=== PATIENT | female | born 1980 | race Two or more races ===

== ENCOUNTER 2024-02-26 14:23 | Emergency (ER) | payer SELFPAY ==
[~2024-02-26] VITALS: Ht 160 cm; Wt 91.0 kg
[2024-02-26 14:48] LABS: Basophils # (auto) 0 10 ^3/uL (0-0.2); Basophils % (auto) 0.7 % (0.0-2.0); Lymphocytes # (auto) 1.5 10 ^3/uL (0.4-5.4); Mean Corpuscular Hemoglobin 26.4 pg (28.0-32.0); Monocytes # (auto) 0.5 10 ^3/uL (0-1.3); White Blood Cell 4.3 10^3/uL (4.4-10.8)
[2024-02-26 14:50] LABS: Eosinophils # (auto) 0.3 10 ^3/uL (0-0.8); Hematocrit 38.4 % (36.0-46.0); Hemoglobin 12.5 g/dL (12.2-16.2); Lymphocytes % (auto) 35.2 % (10.0-50.0); Mean Corpuscular Hgb Conc. 32.6 g/dL (32.0-36.0); Mean Corpuscular Volume 80.9 fL (80.0-100.0); Neutrophils # (auto) 1.9 10 ^3/uL (1.6-8.6); Neutrophils % (auto) 45.1 % (37.0-80.0); Red Blood Cells 4.75 10^6/uL (4.0-5.20); Red Cell Distribution Width 14.6 % (11.8-14.3)
[2024-02-26 15:07] LABS: Alanine Aminotransferase 24 U/L (7-40); Albumin 4.1 g/dL (3.2-4.8); Alkaline Phosphatase 88 U/L (46-116); Anion Gap 8 (5-15); Aspartate Aminotransferase 13 U/L (13-40); BUN/Creatinine Ratio 8.4 (10.0-20.0); Bilirubin, Total 0.2 mg/dL (0.2-1.0); Blood Urea Nitrogen 9 mg/dL (9-23); Calcium 9.6 mg/dL (8.7-10.4); Carbon Dioxide 24 mmol/L (20-30); Chloride 109 mmol/L (98-107); Glucose 119 mg/dL (74-106); Magnesium 1.8 mg/dL (1.6-2.6); Potassium 3.9 mmol/L (3.5-5.1); Sodium 141 mmol/L (136-145); Total Protein 6.5 g/dL (5.7-8.2)
[2024-02-26] MEDS ORDERED: AZIT1POW PO (16:17)
[2024-02-26 16:23] VITALS: BP 107/75; TEMP 98.2
[2024-02-26 16:40] VITALS: PULSE 82; RESP 16; O2SAT 95
== END 2024-02-26 16:51 | disposition home or self-care (01) ==
LOC: ER 14:23
DX: J20.9 Acute bronchitis, unspecified (principal); Z98.890 Other specified postprocedural states; Z88.0 Allergy status to penicillin; Z79.899 Other long term (current) drug therapy
CPT/HCPCS: 36415; 71045; 80053; 83735; 83880; 84484; 85025; 93005

== ENCOUNTER 2025-04-05 22:00 | Emergency (ER) | payer MEDICAID, OTHER ==
[~2025-04-05] VITALS: Ht 152.4 cm; Wt 91.0 kg
[~2025-04-05 22:00] MED LIST: AZIT1POW PO
--- NOTE | 2025-04-05 22:53 | ED.PDOC ---
History of Present Illness HPI Comments 44-year-old female presents with chief complaint of abnormal vaginal bleeding, with the associated abdominal pain, headache, lightheadedness, dizziness, weakness, and fatigue. Patient endorses on bleeding for over the past 3 weeks following initial, unprovoked and gradual onset. She states it being heavy in quality and bright red in appearance, with small clot production and needing to go through 2 pads every hour for over the past week. Abdominal pain is reported to be localized to her epigastric area and is described as constant in quality and 8/10 in severity. Patient also reported isolated episode of "spitting up blood" after having a coughing fit, while washing her teeth in her bathroom, last night. Only significant history of irregular periods for over the past 2 years and C-sections and tubal ligations, that were performed over 17 years ago. She has a family history of uterine fibroids. 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 No recent injuries, new or thinner medication use, or further relevant history endorsed. She denies having any urinary symptoms, nausea, vomiting, diarrhea, constipation, vision or speech changes, fever, chills, or further associated symptoms. Time Seen by MD: 22:30 Primary Care Provider: NONE Reviewed Notes: Nurses Notes, Medications, Allergies Allergies: Coded Allergies: Penicillins (Verified Allergy, Unknown, 02/26/24) Home Meds Active Scripts Nitrofurantoin Monohydrate Mac (Macrobid) 100 Mg Cap, 100 MG PO BID for 7 Days, #14 CAP Prov:TRUDI SNYDER MD 04/06/25 Azithromycin (Zithromax) 1 Gm Pow, 1 PACK PO ONCE, #1 PACK Prov:DESTINI CHANEY MD 02/26/24 Information Source: Patient Mode of Arrival: Ambulatory Severity: Moderate Timing: Weeks Duration: Since onset Prehospital treatment: None Review of Systems: REVIEW OF SYSTEMS: General: Fatigue; No fever, no chills, or fatigue HEENT: No sore throat, no earache, no congestion, no neck pain. Cardiac: No chest pain. No palpitations. Lungs: No shortness of breath, no cough. GI: Abdominal pain; No nausea, no vomiting, no diarrhea, no constipation : Abnormal vaginal bleeding; No dysuria, frequency, or urgency. No hematuria. Musculoskeletal: No joint pain , no joint swelling, no extremity edema. Skin: No rash, no itching. Neuro: Headache, dizziness, and weakness Vital Signs Vital Signs Date Time Temp Pulse Resp B/P (MAP) Pulse Ox O2 Delivery O2 Flow Rate FiO2 04/06/25 03:24 96 Room Air* 0 21 04/06/25 03:23 98.1 67 22 111/55 (73) 98.1 Physical Exam PHYSICAL EXAM: General: Awake, alert and oriented. No acute distress. Skin: Skin in warm, dry and intact. Appropriate color for ethnicity. HEENT: The head is normocephalic and atraumatic. Conjunctivae are clear without exudates or hemorrhage. Sclera is non-icteric. EOM are intact. No signs of nystagmus. Eyelids are normal in appearance without swelling or lesions. Oral mucosa is pink and moist Neck: The neck is supple with normal range of motion. No JVD. Cardiac: Heart rate and rhythm are normal. No murmurs, gallops, or rubs are auscultated. Respiratory: No signs of respiratory distress. Lung sounds are clear in all lobes bilaterally without rales, rhonchi, or wheezes. Abdominal: Periumbilical tenderness. Remaining abdomen is soft, non-tender without distention, guarding or rigidity. Bowel sounds are present and normoactive in all four quadrants. Extremities: Upper and lower extremities are atraumatic in appearance without deformity or edema. Neurological: The patient is awake, alert and oriented to person, place, and time with normal speech. Speech is clear. There is no facial asymmetry. Psychiatric: Appropriate mood and affect. Good judgement and insight. Past Medical History PAST MEDICAL HISTORY: Denies Surgical History: BTL, PLUSH BRUSHER History: No Pertinent PLUSH BRUSHER History Family History Family History: Family hx of DM, Family hx of Cancer, Family hx of heart hernesto Family History (Other): Uterine fibroids Social History Smoker: Non-Smoker Alcohol: Occasionally Drugs: Denies Drug Use Lives In: Home Was a procedure done? Was a procedure done?: No Differential Dx Considerations may include: Differential diagnoses considered include but are not limited to Hormonal, menorrhagia, menometrorrhagia, dysmenorrhea, anemia, uterine fibroids, , urinary tract infection, other X-Ray, Labs, Meds, VS Vital Signs Date Time Temp Pulse Resp B/P (MAP) Pulse Ox O2 Delivery O2 Flow Rate FiO2 04/06/25 03:24 96 Room Air* 0 21 04/06/25 03:23 98.1 67 22 111/55 (73) 96 98.1 04/06/25 00:58 98.1 66 20 121/72 (88) 96 98.1 04/06/25 00:58 66 20 96 Room Air 04/05/25 22:30 98.2 76 20 118/71 (87) 95 98.2 Lab Test 04/05/25 23:59 04/05/25 20:35 Range/Units White Blood Count 8.0 4.4-10.8 10^3/uL Red Blood Count 4.64 4.0-5.20 10^6/uL Hemoglobin 12.6 12.2-16.2 g/dL Hematocrit 37.4 36.0-46.0 % Mean Corpuscular Volume 80.8 80.0-100.0 fL Mean Corpuscular Hemoglobin 27.2 L 28.0-32.0 pg Mean Corpuscular Hemoglobin Concent 33.7 32.0-36.0 g/dL Red Cell Distribution Width 15.4 H 11.8-14.3 % Platelet Count 313 140-450 10^3/uL Mean Platelet Volume 8.5 6.9-10.8 fL Neutrophils (%) (Auto) 50.0 37.0-80.0 % Lymphocytes (%) (Auto) 37.9 10.0-50.0 % Monocytes (%) (Auto) 8.0 0.0-12.0 % Eosinophils (%) (Auto) 3.9 0.0-7.0 % Basophils (%) (Auto) 0.2 0.0-2.0 % Neutrophils # (Auto) 4.0 1.6-8.6 10 ^3/uL Lymphocytes # (Auto) 3.0 0.4-5.4 10 ^3/uL Monocytes # (Auto) 0.6 0-1.3 10 ^3/uL Eosinophils # (Auto) 0.3 0-0.8 10 ^3/uL Basophils # (Auto) 0 0-0.2 10 ^3/uL Nucleated Red Blood Cells 0.1 % Sodium Level 139 136-145 mmol/L Potassium Level 4.1 3.5-5.1 mmol/L Chloride Level 106 98-107 mmol/L Carbon Dioxide Level 26 20-31 mmol/L Anion Gap 7 5-15 Blood Urea Nitrogen 15 9-23 mg/dL Creatinine 0.96 0.550-1.02 mg/dL Glomerular Filtration Rate Calc 74 >90 mL/min BUN/Creatinine Ratio 15.6 10.0-20.0 Serum Glucose 94 74-106 mg/dL Calcium Level 9.5 8.7-10.4 mg/dL Urine Color Light-red Yellow Urine Clarity Ex.turbid Clear Urine pH 8.0 5.0-9.0 Urine Specific [place] 1.020 1.001-1.035 Urine Protein 2+ H Negative Urine Ketones Negative Negative Urine Blood 3+ H Negative /uL Urine Nitrite 2+ H Negative Urine Bilirubin Negative Negative Urine Urobilinogen Normal Negative mg/dL Urine Leukocyte Esterase 1+ Negative /uL Urine RBC 1260 0 - 4 /hpf Urine WBC Clumps Present None Seen /hpf Urine Microscopic WBC 42 H 0-5 /HPF Urine Squamous Epithelial Cells Few <5 /hpf Urine Bacteria Mod H None Seen /hpf Urine Mucus Few None Seen Urine Glucose Normal Normal mg/dL Urine Test Negative Negative [facility] [id number] [place] [address] Ph: [phone] DIAGNOSTIC IMAGING Diagnostic Imaging Report : [id number] Signed PATIENT: VALERIE BRIDGES ACCT: [id number] UNIT: [id number] : 1980 LOC: ER ROOM / BED: / AGE / SEX: 44 / F ADM STATUS: REG ER SERVICE 0000 ORDERING PHYSICIAN: TRUDI SNYDER MD PROCEDURE(s): PELUS - PELVIC REASON: Heavy vag bleeding, pelvic pain ORDER NUMBER(s): [id number], ACCESSION NUMBER(s): [id number] INDICATION: Heavy vag bleeding, pelvic pain TECHNIQUE: Multiple real-time grayscale transabdominal sonographic images along with color and duplex Doppler of the uterus and ovaries were obtained. COMPARISON: None FINDINGS: Limited evaluation. The uterus measures 8.6 x 4.5 x 5.0 cm. The endometrial stripe measures 9 cm. There is a 2.8 cm hypoechoic structure within the uterine body measuring 2.2 x 1.9 x 1.9 cm. The right ovary measures 2.6 x 1.6 x 2.0 cm. The left ovary measures 5.1 x 4.2 x 4.3 cm. 3.4 x 3.3 x 3.7 cm left ovarian cyst. A 5 mm nabothian cyst is seen. Subsequent color and duplex Doppler interrogation of the ovaries demonstrated symmetric vascular flow to both ovaries, though this does not exclude the possibility of torsion due to the dual blood supply. IMPRESSION: 1. Limited evaluation. 2.2 cm possible uterine fibroid. Comparison with any prior outside imaging would be helpful in assessing acuity and interval change. A nonemergent pelvic MRI may be beneficial in further characterization as clinically indicated. ATED BY: BEATRIZ HUTCHINSON MD DICTATED DATE/TIME: 04/06/2555 SIGNED BY: BEATRIZ HUTCHINSON MD SIGNED DATE/TIME: 04/06/2555 CC: Time of 1ST Reevaluation: 23:00 Reevaluation 1ST: Unchanged Patient Education/Counseling: Need For Follow Up Family Education/Counseling: No Family Present SEPSIS Sepsis Screen Physician Orders Pelvic (04/06/25 00:00) Transvaginal Us Non Ob (04/06/25 ) Urine Bacterial Culture (04/06/25 03:14) Vital Signs Date Time Temp Pulse Resp B/P (MAP) Pulse Ox O2 Delivery O2 Flow Rate FiO2 04/06/25 03:24 96 Room Air* 0 21 04/06/25 03:23 98.1 67 22 111/55 (73) 96 98.1 04/06/25 00:58 98.1 66 20 121/72 (88) 96 98.1 04/06/25 00:58 66 20 96 Room Air 04/05/25 22:30 98.2 76 20 118/71 (87) 95 98.2 Laboratory Tests Test 04/05/25 23:59 White Blood Count 8.0 10^3/uL (4.4-10.8) Departure 1 Departure Time of Disposition: 02:48 Impression: Primary Impression: Vaginal bleeding Additional Impression: Uterine fibroid Disposition: 01 HOME / SELF CARE / HOMELESS Condition: Stable Additional Instructions: ED DISCHARGE INSTRUCTIONS Instructions: Please read all instructions provided in this packet carefully. Although you have been discharged from the Emergency Department, this does not mean that you have a "clean bill of health". No definitive diagnosis for your symptoms has been made today. It is possible that you are in the process of developing a serious illness. This is why you must return to the ED without fail if any new or worsening symptoms (especially if your symptoms include chest pain, trouble breathing, abdominal pain, fever, headache, confusion, trouble seeing, or trouble walking) It is also very important that you see a primary care provider (PCP) within the next 3-5 days to follow up. If you are unable to get an appointment, return to the ED for re-evaluation. A COPY OF YOUR ULTRASOUND REPORT IS INCLUDED BELOW Vaginal Bleeding (Nonpregnancy): Care Instructions Overview It's common to have bleeding or spotting between periods. Lots of things can cause it. You may bleed because of hormone problems, stress, or ovulation. Fibroids and IUDs (intrauterine devices) can also cause bleeding. If your bleeding or spotting is caused by one of these things and isn't heavy or doesn't happen often, you probably don't need to worry. But in rare cases, infection, cancer, or other serious conditions can cause bleeding. So you may need more tests to find the cause of your bleeding. The doctor has checked you carefully, but problems can develop later. If you notice any problems or new symptoms, get medical treatment right away. Follow-up care is a enrique part of your treatment and safety. Be sure to make and go to all appointments, and call your doctor if you are having problems. It's also a good idea to know your test results and keep a list of the medicines you take. How can you care for yourself at home? Take pain medicines exactly as directed. If the doctor gave you a prescription medicine for pain, take it as prescribed. If you are not taking a prescription pain medicine, ask your doctor if you can take an [id number] medicine. Do not take aspirin, which may make bleeding worse. If your doctor prescribed control pills for your bleeding, take them as directed. Eat foods that are high in iron and vitamin C. Foods high in iron include red meat, shellfish, eggs, beans, and leafy green vegetables. Foods high in vitamin C include citrus fruits, tomatoes, and broccoli. Ask your doctor if you need to take iron pills or a multivitamin. Ask your doctor when it is okay to have sex. When should you call for help? Call 911 anytime you think you may need emergency care. For example, call if: You passed out (lost consciousness). Call your doctor now or seek immediate medical care if: You have severe vaginal bleeding. You are dizzy or lightheaded, or you feel like you may faint. You have new or worse belly or pelvic pain. Watch closely for changes in your health, and be sure to contact your doctor if: Your bleeding gets worse. You think you might be . You do not get better as expected. Credits for Vaginal Bleeding (Nonpregnancy): Care Instructions Current as of: January 22, 2024 Author: [employer] Staff Clinical Review Board All [employer] education is reviewed by a team that includes physicians, nurses, advanced practitioners, registered dieticians, and other healthcare professionals. US REPORT: INDICATION: Heavy vag bleeding, pelvic pain TECHNIQUE: Multiple real-time grayscale transabdominal sonographic images along with color and duplex Doppler of the uterus and ovaries were obtained. COMPARISON: None FINDINGS: Limited evaluation. The uterus measures 8.6 x 4.5 x 5.0 cm. The endometrial stripe measures 9 cm. There is a 2.8 cm hypoechoic structure within the uterine body measuring 2.2 x 1.9 x 1.9 cm. The right ovary measures 2.6 x 1.6 x 2.0 cm. The left ovary measures 5.1 x 4.2 x 4.3 cm. 3.4 x 3.3 x 3.7 cm left ovarian cyst. A 5 mm nabothian cyst is seen. Subsequent color and duplex Doppler interrogation of the ovaries demonstrated symmetric vascular flow to both ovaries, though this does not exclude the possibility of torsion due to the dual blood supply. IMPRESSION: 1. Limited evaluation. 2.2 cm possible uterine fibroid. Comparison with any prior outside imaging would be helpful in assessing acuity and interval change. A nonemergent pelvic MRI may be beneficial in further characterization as clinically indicated. e-Prescriptions Nitrofurantoin Monohydrate Mac (Macrobid) 100 Mg Cap 100 MG PO BID for 7 Days, #14 CAP Prov: TRUDI SNYDER MD 04/06/25 Comments 44-year-old female presents with vaginal bleeding Patient is well-appearing, nontoxic. Patient is not not hypotensive or tachycardic. Vital signs stable. Lab and imaging results reviewed and are not urgently actionable. Patient is felt stable for discharge home. Patient is advised to follow up with primary care provider or supervisor knitting promptly and return to the emergency department with any new, worsening or concerning symptoms. - I reviewed the following notes from the pt's past medical encounters: N/A The following tests were ordered, and results were reviewed by me: (See diagnostic results section) The following test were independently interpreted by me: N/A Additional information was gathered from interviewing the following independent historians: N/A I reviewed and agreed with the following test results read by other providers: N/A I discussed treatments and results with patient Decision regarding hospitalization or escalation of hospital level of care: Risks and benefits of admission for further treatment of patient's condition was considered however due to patient's stable condition patient will be discharged to follow up closely or return to care for worsening of condition or inability to follow up. Critical Care Note Critical Care Time?: No Stability Stability form required: No Heart Score Heart Score: Heart Score Response (Comments) Value History N/A 0 EKG N/A 0 Age N/A 0 Risk Factors N/A 0 Troponin N/A 0 Total 0 I personally scribed for TRUDI SNYDER MD ([email or web address]) on 04/05/25 at 22:53. Electronically submitted by Horace Suggs ([email or web address]). I personally scribed for TRUDI SNYDER MD ([email or web address]) on 04/06/25 at 03:20. Electronically submitted by Horace Suggs ([email or web address]). I personally scribed for TRUDI SNYDER MD ([email or web address]) on 04/06/25 at 03:21. Electronically submitted by Horace Suggs ([email or web address]). TRUDI SNYDER MD Apr 05, 2025 22:53
[2025-04-05 23:30] LABS: Urine Protein, UAD 2+ (Negative); Urine WBC Clumps PRESENT /hpf (None Seen)
[2025-04-06 00:39] LABS: Hematocrit 37.4 % (36.0-46.0); Hemoglobin 12.6 g/dL (12.2-16.2); Mean Corpuscular Hemoglobin 27.2 pg (28.0-32.0); Mean Corpuscular Volume 80.8 fL (80.0-100.0); Nucleated Red Blood Cells % 0.1 %
[2025-04-06 00:47] LABS: Calcium 9.5 mg/dL (8.7-10.4); Chloride 106 mmol/L (98-107); Potassium 4.1 mmol/L (3.5-5.1); Sodium 139 mmol/L (136-145)
[2025-04-06 00:48] LABS: Anion Gap 7 (5-15); Carbon Dioxide 26 mmol/L (20-31)
[2025-04-06 00:53] LABS: BUN/Creatinine Ratio 15.6 (10.0-20.0); Blood Urea Nitrogen 15 mg/dL (9-23); Glucose 94 mg/dL (74-106)
--- NOTE | 2025-04-06 00:59 | DVH ---
INDICATION: Heavy vag bleeding, pelvic pain TECHNIQUE: Multiple real-time grayscale transabdominal sonographic images along with color and duplex Doppler of the uterus and ovaries were obtained. COMPARISON: None FINDINGS: Limited evaluation. The uterus measures 8.6 x 4.5 x 5.0 cm. The endometrial stripe measures 9 cm. There is a 2.8 cm hypoe choic structure within the uterine body measuring 2.2 x 1.9 x 1.9 cm. The right ovary measures 2.6 x 1.6 x 2.0 cm. The left ovary measures 5.1 x 4.2 x 4.3 cm. 3.4 x 3.3 x 3.7 cm left ovarian cyst. A 5 mm nabothian cyst is seen. Subsequent color and duplex Doppler interrogation of the ovaries demonstrated symmetric vascular flow to both ovaries, though this does not exclude the possibility of torsion due to the dual blood suppl y. IMPRESSION: 1. Limited evaluation. 2.2 cm possible uterine fibroid. Comparison with any prior outside imaging wo uld be helpful in assessing acuity and interval change. A nonemergent pelvic MRI may be beneficial i n further characterization as clinically indicated.
[2025-04-06] MEDS ORDERED: NITR-87 PO (03:15)
[2025-04-06 03:23] VITALS: BP 111/55; PULSE 67; RESP 22; TEMP 98.1
[2025-04-06 03:24] VITALS: O2SAT 96
== END 2025-04-06 03:26 | disposition home or self-care (01) ==
LOC: ER 22:00
DX: D25.9 Leiomyoma of uterus, unspecified (principal); N93.9 Abnormal uterine and vaginal bleeding, unspecified; F10.90 Alcohol use, unspecified, uncomplicated; Z98.51 Tubal ligation status; Z98.890 Other specified postprocedural states; Z88.0 Allergy status to penicillin; Z79.899 Other long term (current) drug therapy; Y90.9 Presence of alcohol in blood, level not specified
CPT/HCPCS: 36415; 76830; 76856; 80048; 81001; 81025; 85025; 87086